=== PATIENT | male | born 1970 | race Caucasian/White ===

== ENCOUNTER 2017-08-22 08:14 | Day surgery (SDC) | payer OTHER ==
[2017-08-17 15:47] VITALS: BMI 26.6
[~2017-08-22 08:14] MED LIST: DEXAMETHASONE SOD PHOSPHATE 10 MG/ML 1 ML VIAL IV ONE; HEPARIN SODIUM,PORCINE 5,000 UNIT/ML 1 ML VIAL SQ ONE; LACTATED RINGERS 1,000 ML IV SCH; ONDANSETRON 4 MG/2 ML VIAL IVP ONE; ceFAZolin IN SWFI 2 GM/20 ML SYRINGE IVP ONE
[2017-08-22] MEDS ORDERED: LIDOCAINE 1% 20 ML VIAL (10MG/ML) FOR IV START INTRADERMA ONE (08:51)
--- NOTE | 2017-08-22 09:46 | P.GSHP ---
History of Present Illness H&P Date: 08/22/17 Chief Complaint: incarcerated umbilical hernia this is a 47-year-old male who presents today for laparoscopic robotic-assisted repair of incarcerated umbilical hernia. Patient developed a mass ahis umbilicus. The mass is firm and tender. Past Medical History Past Medical History: GERD/Reflux, Hyperlipidemia Additional Past Medical History / Comment(s): UMBILICAL HERNIA CURRENTLY. History of Any Multi-Drug Resistant Organisms: None Reported Past Surgical History: No Surgical Hx Reported Additional Past Surgical History / Comment(s): EXC WISDOM TEETH Past Anesthesia/Blood Transfusion Reactions: No Reported Reaction Smoking Status: Current every day smoker - Past Family History Father Family Medical History: Cancer Medications and Allergies Home Medications Medication Instructions Recorded Confirmed Type No Known Home Medications [No 08/17/17 08/22/17 History Known Home Medications] Allergies Allergy/AdvReac Type Severity Reaction Status Date / Time No Known Allergies Allergy Verified 08/22/17 08:39 Surgical - Exam Vital Signs Temp Pulse Resp BP Pulse Ox 98.1 F 68 16 1444/97 99 08/22/17 08:41 08/22/17 08:41 08/22/17 08:41 08/22/17 08:41 08/22/17 08:41 - General well developed, no distress - Eyes PERRL - ENT normal pinna - Neck no masses - Respiratory normal expansion - Cardiovascular Rhythm: regular - Abdomen Abdomen: soft, non tender Hernia: umbilical (incarcerated umbilical hernia) Assessment and Plan Assessment: incarcerated umbilical hernia. We'll perform laparoscopic robotic assistance repair.
[2017-08-22] MEDS ORDERED: ROCURONIUM BROMIDE 10 MG/ML 10 ML VIAL IV ONE (10:13)
[2017-08-22] MEDS ORDERED: PROPOFOL 10 MG/ML 20 ML VIAL IV ONE (10:13)
[2017-08-22] MEDS ORDERED: LIDOCAINE 1% INJ 10MG/ML (20 ML MDV) ONE (10:13)
[2017-08-22] MEDS ORDERED: HYDROmorphone (PF) 1 MG/ML ONE (10:13)
[2017-08-22] MEDS ORDERED: MIDAZOLAM 2 MG/2 ML VIAL ONE (10:13)
[2017-08-22] MEDS ORDERED: NEOSTIGMINE 1 MG/ML 10 ML VIAL ONE (10:13)
[2017-08-22] MEDS ORDERED: GLYCOPYRROLATE 0.2 MG/ML 2 ML VIAL ONE (10:13)
[2017-08-22] MEDS ORDERED: fentaNYL (PF) 50 MCG/ML 2 ML AMP ONE (10:13)
[2017-08-22] MEDS ORDERED: ePHEDrine SULFATE/0.9% NACL/PF 50 MG/5 ML SYRINGE IV ONE (10:13)
[2017-08-22] MEDS ORDERED: SUCCINYLCHOLINE CHLORIDE 100 MG/5 ML SYR IV ONE (10:13)
[2017-08-22] MEDS ORDERED: KETOROLAC 30 MG/ML 1 ML VIAL ONE (10:13)
[2017-08-22] MEDS ORDERED: BUPIVACAINE-EPI 0.5%-1:200,000 10 ML VIAL SQ ONE (10:26)
--- NOTE | 2017-08-22 11:30 | P.OP ---
Date of Procedure: 08/22/17 Preoperative Diagnosis: Incarcerated umbilical hernia Postoperative Diagnosis: Incarcerated umbilical hernia Procedure(s) Performed: Laparoscopic robotic assistance repair of incarcerated umbilical hernia Anesthesia: HATTIE Surgeon: Edgar Ross Estimated Blood Loss (ml): 5 Pathology: none sent Condition: stable Disposition: PACU Description of Procedure: The patient's placed on the operative table in the supine position. He received general anesthesia. His abdomen was prepped and draped usual sterile fashion. Using a 8 mm robotic trocar at the left upper quadrant was entered. And then a another 8 mm robotic trochars placed in the right lower quadrant and then a 12 mm trochars placed in the left lateral position. The patient was docked to the robot. The incarcerated ventral hernia was visualized. The incarcerated omentum was dissected free using the hook cautery. The fascial defect was then closed with OV lock suture. Next the repair was buttressed with ventral light ST mesh. 11 cm round mesh was secured with 2 OV lock suture. The patient was undocked from the robot. The needles were retrieved. The incarcerated omentum was was retrieved. The 12 mm trocar site was closed with 0 Ethibond suture. Skin was closed interrupted 3-0 Monocryl suture. Dermabond dressings was applied. Patient received well and sent to recovery in stable condition.
[2017-08-22] MEDS ORDERED: LACTATED RINGERS 1,000 ML IV ONE (11:33)
[2017-08-22 11:48] VITALS: TEMP 97.2
[2017-08-22] MEDS: HYDROmorphone 0.5 MG/0.5 ML SYRINGE IVP PRN ×4 (11:49→12:27)
[2017-08-22 12:03] VITALS: RESP 16
[2017-08-22] MEDS ORDERED: ONDANSETRON 4 MG/2 ML VIAL IVP ONE (12:08)
[2017-08-22 13:30] VITALS: BP 132/87; PULSE 94
[2017-08-22] MEDS ORDERED: HYDROcodone/APAP 7.5-325MG 1 EACH TAB PO ONE (13:30)
== END 2017-08-22 15:58 | disposition home or self-care (01) ==
LOC: OR 08:14
PROVIDERS: ATTEND Surgery
DX: K42.0 Umbilical hernia with obstruction, without gangrene (principal); K21.9 Gastro-esophageal reflux disease without esophagitis; E78.5 Hyperlipidemia, unspecified; F17.200 Nicotine dependence, unspecified, uncomplicated; Z80.9 Family history of malignant neoplasm, unspecified
CPT/HCPCS: 49653; 88302; C1781; J2250; J1644; J1100; J2710; J0690; J2405; J2001; J3010; J1885; J1170 ×2; J0330; J2704

== ENCOUNTER 2018-06-02 23:25 | Emergency (ER) | payer BC, OTHER ==
[2018-06-02 23:49] VITALS: BP 146/89; PULSE 62; RESP 16; TEMP 98
[2018-06-03 01:26] LABS: Basophils # (A) 0.1 k/uL (0-0.2); Basophils % (A) 1 %; Eosinophils # (A) 0.3 k/uL (0-0.7); Eosinophils % (A) 2 %; HCT 48.2 % (39.0-53.0); HGB 16.5 gm/dL (13.0-17.5); Lymphocytes # (A) 3.2 k/uL (1.0-4.8); Lymphocytes % (A) 27 %; MCH 30.5 pg (25.0-35.0); MCHC 34.3 g/dL (31.0-37.0); MCV 88.7 fL (80.0-100.0); Mean Platelet Volume 8.4; Monocytes # (A) 0.9 k/uL (0-1.0); Monocytes % (A) 8 %; Neutrophils # (A) 7.2 k/uL (1.3-7.7); Neutrophils % (A) 61 %; Platelet Count 223 k/uL (150-450); RBC 5.43 m/uL (4.30-5.90); RDW 12.4 % (11.5-15.5)
[2018-06-03 01:33] LABS: Anion Gap 8 mmol/L; Blood Urea Nitrogen 15 mg/dL (9-20); Carbon Dioxide 25 mmol/L (22-30); Chloride 108 mmol/L (98-107); Glucose 97 mg/dL (74-99); Potassium 3.6 mmol/L (3.5-5.1); Sodium 141 mmol/L (137-145)
--- NOTE | 2018-06-03 02:29 | ED ---
General Adult HPI - General Chief complaint: Urogenital Stated complaint: Male Time Seen by Provider: 06/03/18 00:53 Source: patient Mode of arrival: ambulatory Limitations: no limitations - History of Present Illness Initial comments: This patient is a 48-year-old man who presents with complaint that for about a year he has been having episodes in which she gets lightheaded at times. Patient states that seems to be accompanied by standing or exertion. States he' ll feel a bit lightheaded. Sometimes his vision seems to go dark. He denies complete syncope. He had also noted some lines across his toenails. Patient was concerned because he had been online and had read that this may be associated with tertiary syphilis infection. Patient is denying chancre. Denying genitourinary symptoms. Onset/Timin -: year(s) Location: head Radiation: non-radiation Consistency: intermittent Improves with: none Worsens with: none - Related Data Previous Rx's Medication Instructions Recorded Docusate [Colace] 100 mg PO BID #20 capsule 08/22/17 HYDROcodone/APAP 7.5-325MG [Flippin 1 each PO Q4H PRN #60 tab 08/22/17 7.5] Allergies Allergy/AdvReac Type Severity Reaction Status Date / Time No Known Allergies Allergy Verified 06/02/18 23:49 Review of Systems ROS Statement: Those systems with pertinent positive or pertinent negative responses have been documented in the HPI. ROS Other: All systems not noted in ROS Statement are negative. Constitutional: Denies: fever, chills, weakness Respiratory: Denies: cough, dyspnea Cardiovascular: Denies: chest pain, palpitations, edema, syncope Gastrointestinal: Denies: abdominal pain, nausea, vomiting Genitourinary: Denies: dysuria, hematuria, discharge, testicular pain Musculoskeletal: Denies: back pain Skin: Denies: rash Neurological: Denies: headache, weakness, numbness, paresthesias Past Medical History Past Medical History: GERD/Reflux, Hyperlipidemia Additional Past Medical History / Comment(s): UMBILICAL HERNIA CURRENTLY. History of Any Multi-Drug Resistant Organisms: None Reported Past Surgical History: No Surgical Hx Reported Additional Past Surgical History / Comment(s): EXC WISDOM TEETH Past Anesthesia/Blood Transfusion Reactions: No Reported Reaction Past Psychological History: No Psychological Hx Reported Smoking Status: Current every day smoker - Past Family History Father Family Medical History: Cancer General Exam Limitations: no limitations General appearance: alert, in no apparent distress Head exam: Present: atraumatic, normocephalic Eye exam: Present: normal appearance. Absent: scleral icterus, conjunctival injection ENT exam: Present: normal oropharynx Respiratory exam: Present: normal lung sounds bilaterally. Absent: respiratory distress, wheezes, rales, rhonchi, stridor Cardiovascular Exam: Present: regular rate, normal rhythm, normal heart sounds. Absent: systolic murmur, diastolic murmur, rubs, gallop GI/Abdominal exam: Present: soft. Absent: distended, tenderness, guarding, rebound, mass Extremities exam: Present: normal inspection, normal capillary refill. Absent: pedal edema, calf tenderness Back exam: Present: normal inspection. Absent: CVA tenderness (R), CVA tenderness (L) Neurological exam: Present: alert, normal gait. Absent: motor sensory deficit Skin exam: Present: warm, dry, intact, normal color. Absent: rash Course Vital Signs 06/02/18 23:44 Temperature 98.0 F Pulse Rate 62 Respiratory 16 Rate Blood Pressure 146/89 O2 Sat by Pulse 98 Oximetry Medical Decision Making - Medical Decision Making Discussed with the patient that I recommend following up with comic artist to have Holter monitoring as well as possibly stress test. Also follow-up for results of his send out lab. Discussed return parameters. - Lab Data Result diagrams: 06/03/18 01:10 06/03/18 01:10 Lab Results 06/03/18 06/03/18 Range/Units 01:10 01:10 WBC 12.0 H (3.8-10.6) k/uL RBC 5.43 (4.30-5.90) m/uL Hgb 16.5 (13.0-17.5) gm/dL Hct 48.2 (39.0-53.0) % MCV 88.7 (80.0-100.0) fL MCH 30.5 (25.0-35.0) pg MCHC 34.3 (31.0-37.0) g/dL RDW 12.4 (11.5-15.5) % Plt Count 223 (150-450) k/uL Neutrophils % 61 % Lymphocytes % 27 % Monocytes % 8 % Eosinophils % 2 % Basophils % 1 % Neutrophils # 7.2 (1.3-7.7) k/uL Lymphocytes # 3.2 (1.0-4.8) k/uL Monocytes # 0.9 (0-1.0) k/uL Eosinophils # 0.3 (0-0.7) k/uL Basophils # 0.1 (0-0.2) k/uL Sodium 141 (137-145) mmol/L Potassium 3.6 (3.5-5.1) mmol/L Chloride 108 H (98-107) mmol/L Carbon Dioxide 25 (22-30) mmol/L Anion Gap 8 mmol/L BUN 15 (9-20) mg/dL Creatinine 0.80 (0.66-1.25) mg/dL Est GFR (CKD-EPI)AfAm >90 (>60 ml/min/1.73 sqM) Est GFR (CKD-EPI)NonAf >90 (>60 ml/min/1.73 sqM) Glucose 97 (74-99) mg/dL Calcium 9.0 (8.4-10.2) mg/dL Disposition Clinical Impression: Visual acuity reduced Disposition: HOME SELF-CARE Condition: Good Instructions: Blurred Vision (ED) Is patient prescribed a controlled substance at d/c from ED?: No Referrals: Nonstaff,Physician [Primary Care Provider] - 1-2 days Lavelle Garcia MD [REFERRING] - 1-2 days
== END 2018-06-03 02:58 | disposition home or self-care (01) ==
LOC: EC 23:25
DX: H53.8 Other visual disturbances (principal); R42 Dizziness and giddiness; F17.200 Nicotine dependence, unspecified, uncomplicated
CPT/HCPCS: 36415; 80048; 85025; 86780; 99284